=== PATIENT | female | born 1960 | race Caucasian/White ===

== ENCOUNTER 2017-07-23 11:42 | Emergency (ER) | payer SELFPAY ==
[~2017-07-23] VITALS: Ht 157.5 cm; Wt 47.3 kg
[2017-07-23] MEDS ORDERED: HYDROcodone/APAP 5/325 TABLET ONE (13:27)
[2017-07-23] MEDS ORDERED: HYDROcodone/APAP 5/325 TABLET PO ONE (13:30)
[2017-07-23] MEDS ORDERED: SODIUM CHLORIDE FLUSH 10ML SYR IVF ONE (15:00)
[2017-07-23] MEDS ORDERED: BUPIVACAINE 0.25% ONE (15:08)
[2017-07-23] MEDS ORDERED: BUPIVACAINE/PF 0.5% ONE (15:08)
[2017-07-23] MEDS ORDERED: LIDOCAINE-MPF 2% ,5ML ONE (15:09)
[2017-07-23] MEDS ORDERED: LORazepam 2 MG/ML, 1ML ONE (15:29)
[2017-07-23] MEDS ORDERED: LORazepam 2 MG/ML, 1ML IVPush ONE (16:00)
[2017-07-23 17:24] VITALS: BP 135/88
== END 2017-07-23 17:25 | disposition home or self-care (01) ==
LOC: ED 14:01
DX: S42.342A Displaced spiral fracture of shaft of humerus, left arm, initial encounter for closed fracture (principal); F17.200 Nicotine dependence, unspecified, uncomplicated; W18.39XA Other fall on same level, initial encounter; Y93.89 Activity, other specified; Y92.89 Other specified places as the place of occurrence of the external cause; Y99.8 Other external cause status
CPT/HCPCS: 29105; 73020; 73060; 96374; 99284; J2060